=== PATIENT | female | born 1995 | race Caucasian/White ===

== ENCOUNTER 2016-09-16 23:32 | Inpatient (IN) | payer MEDICAID, OTHER ==
[2016-09-17] MEDS ORDERED: fentaNYL* 50 MCG/ML 2 ML VIAL (100 MCG VIAL) ONE (00:09)
[2016-09-17 00:24] LABS: Hematocrit 32 % (35-47); Hemoglobin 10.7 g/dl (12.0-16.0); Mean Corpuscular HGB Conc 33 g/dl (31-36); Mean Corpuscular Hemoglobin 28 pg (27-31); Mean Corpuscular Volume 84 fL (80-97); Mean Platelet Volume 11 um3 (7.4-10.4); Red Cell Distribution Width 14 % (10.5-15)
[2016-09-17] MEDS ORDERED: Sodium Citrate/Citric Acid* 15 ML UDC PO PRN (00:45)
[2016-09-17] MEDS ORDERED: Phenylephrine IV* 40 MCG/ML 10 ML SYRINGE IV PUSH PRN ×2 (00:45)
[2016-09-17] MEDS ORDERED: EPHEDrine (Pressors)* 50 MG/ML VIAL IV PUSH PRN ×2 (00:45)
[2016-09-17] MEDS ORDERED: Famotidine TAB* 20 MG PO PRN (00:45)
[2016-09-17] MEDS ORDERED: Acetaminophen TAB* 325 MG PO PRN (01:06)
[2016-09-17] MEDS ORDERED: oxyCODONE/Acetamin 5/325 MG* TAB PO PRN (01:06)
[2016-09-17] MEDS ORDERED: Witch Hazel PAD* JAR TOPICAL PRN (01:06)
[2016-09-17] MEDS ORDERED: Dibucaine 1% 28.35 GM TUBE PR PRN (01:06)
[2016-09-17] MEDS: Ibuprofen TAB* 600 MG PO PRN ×2 (07:45→14:13)
[2016-09-17] MEDS: Docusate CAP* 100 MG PO SCH ×3 (07:45→21:40)
[2016-09-18] MEDS: Ibuprofen TAB* 600 MG PO PRN ×3 (01:51→20:20)
[2016-09-18 07:26] LABS: Hematocrit 29 % (35-47); Hemoglobin 9.7 g/dl (12.0-16.0); Mean Corpuscular HGB Conc 33 g/dl (31-36); Mean Corpuscular Hemoglobin 28 pg (27-31); Mean Corpuscular Volume 86 fL (80-97); Mean Platelet Volume 11 um3 (7.4-10.4); Red Blood Count 3.42 10^6/ul (4.0-5.4); Red Cell Distribution Width 14 % (10.5-15); White Blood Count 9.2 10^3/ul (3.5-10.8)
[2016-09-18] MEDS: Ferrous Gluconate TAB* 324 MG TAB PO SCH ×2 (08:40→20:20)
[2016-09-18] MEDS: Docusate CAP* 100 MG PO SCH ×3 (08:40→20:19)
[2016-09-19] MEDS: Ferrous Gluconate TAB* 324 MG TAB PO SCH (08:16)
[2016-09-19] MEDS: Docusate CAP* 100 MG PO SCH (08:16)
[2016-09-19 08:32] VITALS: BP 107/64
== END 2016-09-19 11:16 | disposition home or self-care (01) | DRG 560 ==
LOC: MCHOBOUT 23:32 → MCHOB 23:49
PROVIDERS: ADMIT Nurse Practitioner; ATTEND Nurse Practitioner
PROC: 10E0XZZ Delivery of Products of Conception, External Approach (ICD-10-PCS; principal; 2016-09-17)
DX: O62.3 Precipitate labor (principal); O99.344 Other mental disorders complicating childbirth; F32.89 Other specified depressive episodes; Z3A.38 38 weeks gestation of pregnancy; Z37.0 Single live birth
CPT/HCPCS: 36415; 85025; 86850; 86900; 86901; A9270-GY; J3010

== ENCOUNTER 2019-06-21 13:53 | Emergency (ER) | payer OTHER ==
[2019-06-21 14:14] VITALS: BP 89/50
--- NOTE | 2019-06-21 15:13 | UC ---
Hand/Wrist HPI - HPI Summary HPI Summary: 23 yo female presents with LEFT wrist pain. She is left hand dominant. She tells me that over the last 2-3 months she has been having worsening left wrist pain with occasional numbness into her left hand. 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 She has been taking tylenol /ibuprofen with little relief. Denies specific injury. - History Of Current Complaint Chief Complaint: UCUpperExtremity Stated Complaint: WRIST INJURY Time Seen by Provider: 06/21/19 15:12 Hx Obtained From: Patient Hx Last Menstrual Period: IUD inplace Onset/Duration: Gradual Onset Severity Initially: Moderate Severity Currently: Moderate Pain Intensity: 8 - Allergies/Home Medications Allergies/Adverse Reactions: Allergies Allergy/AdvReac Type Severity Reaction Status Date / Time medina flavor Allergy Hives Verified 06/21/19 14:12 PMH/Surg Hx/FS Hx/Imm Hx - Additional Past Medical History Additional PMH: None - Surgical History Surgical History: None - Family History Known Family History: Positive: None - Social History Occupation: Employed Full-time Lives: With Family Alcohol Use: Rare Substance Use Type: None Smoking Status (MU): Never Smoked Tobacco - Immunization History Most Recent Influenza Vaccination: 05/25 Most Recent Tetanus Shot: counseled in office Most Recent Pneumonia Vaccination: not indicated Review of Systems All Other Systems Reviewed And Are Negative: No Constitutional: Positive: Negative Skin: Positive: Negative Respiratory: Positive: Negative Cardiovascular: Positive: Negative Neurovascular: Positive: Negative Musculoskeletal: Positive: Other: - Left wrist pain Neurological: Positive: Numbness - left hand Psychological: Positive: Negative Physical Exam - Summary Physical Exam Summary: GENERAL: NAD. WDWN. No pain distress. SKIN: No rashes, sores, lesions, or open wounds. CHEST: No accessory muscle use. Breathing comfortably and in no distress. CV: Pulses intact radial and ulnar. Cap refill <2seconds MSK: LEFT WRIST: FROM. 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 No edema or obvious bony deformities. No snuffbox tenderness. POSITIVE Tinel and Phalen test. NEURO: Alert. Sensations intact hand and all fingers. PSYCH: Age appropriate behavior. Triage Information Reviewed: Yes Vital Signs: Initial Vital Signs Temp 98.5 F 06/21/19 14:09 Pulse 69 06/21/19 14:09 Resp 18 06/21/19 14:09 BP 89/50 06/21/19 14:09 Pulse Ox 100 06/21/19 14:09 Vital Signs Reviewed: Yes Diagnostics - Radiology Wrist XR Radiology Interpretation Completed By: Radiologist Summary of Radiographic Findings: IMPRESSION: NO ACUTE OSSEOUS INJURY. IF SYMPTOMS PERSIST, RECOMMEND REPEAT IMAGING. Hand/Wrist Course/Dx - Course Course Of Treatment: XR as above. Suspect carpal tunnel vs tendinitis. She was given a cock-up splint to use for comfort. Will refer her to physical therapy and Orthopedics for further eval and treatment. - Differential Dx/Diagnosis Provider Diagnosis: Wrist pain Discharge ED - Sign-Out/Discharge Documenting (check all that apply): Patient Departure All imaging exams completed and their final reports reviewed: Yes - Discharge Plan Condition: Stable Disposition: HOME Forms: *Work Release Referrals: Lydia Richard MD [Primary Care Provider] - Henry Sommer MD [Medical Doctor] - As Soon As Possible Additional Instructions: If you develop a fever, shortness of breath, chest pain, new or worsening symptoms - please call your PCP or go to the ED immediately. Your symptoms are most consistent with carpal tunnel syndrome. I recommend starting physical therapy and using the wrist brace as much as possible Please follow up with Orthopedics if symptoms do not improve - Billing Disposition and Condition Condition: STABLE Disposition: Home
== END 2019-06-21 15:45 | disposition home or self-care (01) ==
LOC: UCEAST 13:53
DX: M25.532 Pain in left wrist (principal); Z91.02 Food additives allergy status
CPT/HCPCS: 99212; G0463